=== PATIENT | female | born 1990 | race Caucasian/White ===

== ENCOUNTER 2016-10-10 18:43 | Emergency (ER) | payer OTHER ==
--- NOTE | 2016-10-10 19:34 | EDPHY ---
HPI/HX/ROS/PE/MDM Narrative: CHIEF COMPLAINT: Left-sided head pain. HISTORY OF PRESENT ILLNESS: The patient is a 26-year-old female with a history of trigeminal neuralgia who presents with left-sided head pain for the past 4 hours. The pain began in her left ear and now radiates to the top of her head and down her neck. The pain is usually on the right but she does sometimes get it on the left. She denies provoking factors. No recent sickness, cough, ear pain, recent dental work. She took her Tegretol and Indomethacin to no effect. She takes Tegretol daily but now only takes Indomethacin when she has an attack (1-2 times per month). No fever, chills, chest pain, shortness of breath, palpitations, vomiting, diarrhea, urinary complaints, rash, headache, lightheadedness, vision changes, hearing changes. REVIEW OF SYSTEMS: Aside from elements discussed in the HPI, a comprehensive 10-point review of systems was reviewed and is negative. PAST MEDICAL HISTORY: Mononucleosis, Lyme disease, UTIs, kidney stones, trigeminal neuralgia. SOCIAL HISTORY: From [facility], social alcohol use. VITAL SIGNS: Reviewed by me GENERAL: Well-developed, well-nourished, tearful, reporting pain. HEENT: Atraumatic. Eyes: No icterus, no injection. KAMRAN, EOMI. Left ear: Patient declined examination of the tympanic membrane. She states that any manipulation of the ear causes severe increase in her discomfort. Mouth: moist mucous membranes. Patient does have limitation in opening her mouth. She states this happens when her trigeminal neuralgia is severe. No erythema or lesions. Neck: supple with no adenopathy. LUNGS: Clear to auscultation bilaterally, no wheezes, rhonchi or rales. CARDIAC: Regular rate and rhythm, no rubs, murmurs or gallops. ABDOMEN: Soft, nontender, nondistended, bowel sounds normal. BACK: No CVA tenderness. EXTREMITIES: No trauma. No edema. Range of motion is normal throughout. NEURO: Alert and oriented, cranial nerves 2-12 are intact. Grossly nonfocal. SKIN: Warm and dry, no rash. PSYCHIATRIC: Normal mentation, no agitation. Portions of this note were transcribed by a medical records auditor. I personally performed a history, physical exam, medical decision making, and confirmed accuracy of information the transcribed note. ED Course: The patient's condition today does not differ from her usual episodes of trigeminal neuralgia pain. As such, I will treat her with the pain and nausea medications she usually receives as she tells me these usually work. An IV was established. 1mg IV Dilaudid and 1mg IV Zofran administered. 2049: Reassessed patient. She is feeling better but the pain has not completely gone away. I will give her 30mg Toradol and she is comfortable going home after with neurology follow up. Just prior to discharge patient episode of nausea and vomiting. She had received Zofran initially. She received Reglan 10 mg. She reports much improvement in her nausea. She feels comfortable being discharged home. She was given a prescription for Pomeroy to use if needed for any residual pain. She was also encouraged to follow up with a neurologist here in [place] and she has seen Dr. Nixon previously. MDM: After history was obtained, and the physical exam performed, a differential for the patient's presenting complaint was considered including, but not limited to , trigeminal neuralgia, shingles, migraine, trauma, meningitis, encephalitis, sinusitis, otitis media, otitis externa. - Data Points Medications Given: Discontinued Medications Hydromorphone HCl (Dilaudid) 1 mg IVP EDNOW ONE Stop: 10/10/16 19:41 Last Admin: 10/10/16 20:02 Dose: 1 mg Ketorolac Tromethamine (Toradol) 30 mg IVP EDNOW ONE Stop: 10/10/16 21:04 Last Admin: 10/10/16 21:36 Dose: 30 mg Metoclopramide HCl (Reglan Injection) 10 mg IVP EDNOW ONE Stop: 10/10/16 21:34 Last Admin: 10/10/16 21:37 Dose: 10 mg Ondansetron HCl (Zofran) 4 mg IVP EDNOW ONE Stop: 10/10/16 19:42 Last Admin: 10/10/16 20:02 Dose: 4 mg General Time Seen by Provider: 10/10/16 18:53 Initial Vital Signs: Initial Vital Signs Temperature (C) 36.9 C 10/10/16 18:47 Heart Rate 80 10/10/16 18:47 Respiratory Rate 17 10/10/16 18:47 Blood Pressure 134/95 H 10/10/16 18:47 O2 Sat (%) 97 10/10/16 18:47 O2 Delivery Mode Room Air Allergies/Adverse Reactions: Penicillins Allergy (Intermediate, Verified 04/15/16 18:48) Hives Home Medications: Medication Instructions Recorded Iud 04/15/16 carBAMazepine [Tegretol] 200 mg PO DAILY #30 tablet 04/15/16 Hydrocodone/APAP 5/325 [Pomeroy 1 tab PO Q6H PRN #10 tab 10/10/16 5/325 (RX)] INDOMETHACIN 10/10/16 Lo Loestrin Fe 1-10 Tablet 10/10/16 Departure - Departure Disposition: Home, Routine, Self-Care Clinical Impression: Trigeminal neuralgia of right side of face, Trigeminal neuralgia pain Condition: Good Instructions: Hydrocodone/Acetaminophen (By mouth), Trigeminal Neuralgia (ED) Additional Instructions: Call your neurologist tomorrow morning to set up a follow up appointment. Return to the emergency department if you experience any serious worsening of condition. Okay to take hydrocodone if needed for residual, severe pain. Referrals: Dewey Nixon MD [Medical Doctor] - As per Instructions Prescriptions: Hydrocodone/APAP 5/325 [Pomeroy 5/325 (RX)] 1 tab PO Q6H PRN #10 tab PRN Reason: Pain Report Scribed for: Mirian Perez Report Scribed by: Burton Murphy Date of Report: 10/10/16 Time of Report: 19:36
[2016-10-10] MEDS ORDERED: HYDROmorphONE/DILAUDID 1 MG/ML SYR IVP ONE (19:40)
[2016-10-10] MEDS ORDERED: ONDANSETRON 4 MG/2 ML VIAL IVP ONE (19:41)
[2016-10-10] MEDS ORDERED: KETOROLAC 30 MG/1 ML SDV IVP ONE (21:03)
[2016-10-10] MEDS ORDERED: METOCLOPRAMIDE 10 MG/2 ML VIAL ONE ×2 (21:31)
[2016-10-10] MEDS ORDERED: METOCLOPRAMIDE 10 MG/2 ML VIAL IVP ONE (21:33)
[2016-10-10] MEDS ORDERED: ONDANSETRON 4MG PREPACK#2 BTL TAKEHOME ONE (21:51)
[2016-10-10 22:00] VITALS: BP 124/62; PULSE 74; RESP 16; TEMP 97.9; O2SAT 94
[2016-10-10] MEDS ORDERED: ONDANSETRON DISINTEGRATING 4 MG TAB PO ONE (22:07)
[2016-10-10] MEDS ORDERED: ONDANSETRON DISINTEGRATING 4 MG TAB ONE (22:08)
== END 2016-10-10 23:05 | disposition home or self-care (01) ==
DX: G50.0 Trigeminal neuralgia (principal)
CPT/HCPCS: 96374; J1170; J1885; J2405; J2765

== ENCOUNTER 2017-01-17 19:56 | Emergency (ER) | payer OTHER ==
[2017-01-17 20:14] VITALS: TEMP 97.2
[2017-01-17] MEDS ORDERED: HYDROmorphONE/DILAUDID 1 MG/ML SYR IVP ONE (20:47)
[2017-01-17] MEDS ORDERED: ONDANSETRON 4 MG/2 ML VIAL IVP ONE (20:47)
[2017-01-17] MEDS ORDERED: KETOROLAC 15 MG/1 ML SDV IVP ONE (23:20)
--- NOTE | 2017-01-17 23:38 | EDPHY ---
H & P Stated Complaint: L side trigeminal neuralgia - Personal History LMP (Females 10-55): IUD In Place Current Tetanus/Diphtheria Vaccine: Yes Tetanus Vaccine Date: 2011 - Medical/Surgical History Hx Asthma: No Hx Chronic Respiratory Disease: No Hx Diabetes: No Hx Cardiac Disease: No Hx Renal Disease: No Hx Cirrhosis: No Hx Alcoholism: No Hx HIV/AIDS: No Hx Splenectomy or Spleen Trauma: No Other PMH: PMHx: [place], Lyme Dx, UTI's, Abscess, Kidney stone, Trigeminal neuralgia. PSHx: denies - Social History Smoking Status: Never smoked Time Seen by Provider: 01/17/17 20:42 HPI/ROS: Chief complaint: Left-sided trigeminal neuralgia pain History of present illness: This is a 26-year-old female who presents to the emergency department for left-sided trigeminal neuralgia pain. Patient has a history of trigeminal neuralgia. It is often on the right but occasionally on the left. She reports a flare of the pain over the last day. She states she is unable to control it at home using her home medications. She states this is a rather typical exacerbation. There is nothing new or different today is compared to previous episodes. No other complaints. (Demetrius Lara) - Physical Exam Exam: General Appearance: Alert, uncomfortable appearing. Eyes: Pupils equal and round no injection. Respiratory: Chest is nontender, lungs are clear to auscultation. Cardiac: regular rate and rhythm. Musculoskeletal: Neck is supple and nontender. Extremities have full range of motion and are nontender. Skin: No rashes or lesions. Neurological: Alert and oriented x4. Cranial nerves 2-12 grossly intact. Strength and sensation intact and symmetrical. Patient ambulating without difficulty. (Demetrius Lara) Constitutional: Initial Vital Signs Temperature (C) 36.2 C 01/17/17 20:12 Heart Rate 87 01/17/17 20:12 Respiratory Rate 16 01/17/17 20:12 Blood Pressure 99/87 H 01/17/17 20:12 O2 Sat (%) 94 01/17/17 20:12 O2 Delivery Mode Room Air Allergies/Adverse Reactions: Penicillins Allergy (Intermediate, Verified 04/15/16 18:48) Hives Home Medications: Medication Instructions Recorded Iud 04/15/16 carBAMazepine [Tegretol] 200 mg PO DAILY #30 tablet 04/15/16 ASPIRIN 01/17/17 Medical Decision Making ED Course/Re-evaluation: Patient seen under the supervision of my secondary supervising physician Dr. Deo Green. Patient presents to the emergency department reporting a flare of her trigeminal neuralgia pain. The pain is on the left. She has had multiple similar flares in the past. There is nothing new or different today as compared to previous episodes. She is nontoxic. Vital signs are stable. Physical exam is benign including a nonfocal neurologic exam. I do not believe emergency department workup or inpatient management is warranted. She is symptomatically treated with Dilaudid, Toradol and Zofran and reports improvement in pain. She would like to be discharged home. Home care is discussed. She is to follow up with her own doctors for recheck. Return precautions are given. Patient voiced understanding and agreement with plan. ( Demetrius Lara) - Data Points Medications Given: Discontinued Medications Hydromorphone HCl (Dilaudid) 1 mg IVP EDNOW ONE Stop: 01/17/17 20:48 Last Admin: 01/17/17 21:05 Dose: 1 mg Ketorolac Tromethamine (Toradol) 15 mg IVP EDNOW ONE Stop: 01/17/17 23:21 Last Admin: 01/17/17 23:44 Dose: 15 mg Ondansetron HCl (Zofran) 4 mg IVP EDNOW ONE Stop: 01/17/17 20:48 Last Admin: 01/17/17 21:05 Dose: 4 mg Departure - Departure Disposition: Home, Routine, Self-Care Clinical Impression: Trigeminal neuralgia of left side of face Condition: Good Instructions: Trigeminal Neuralgia (ED) Additional Instructions: Follow-up with your neurologist for further care If symptoms worsen or new symptoms develop return to the emergency room for recheck Referrals: NONE *PRIMARY CARE P,. [Primary Care Provider] - As per Instructions Dewey Nixon MD [Medical Doctor] - As per Instructions
[2017-01-17 23:59] VITALS: BP 106/61; PULSE 66; RESP 16; O2SAT 93
== END 2017-01-17 23:56 | disposition home or self-care (01) ==
DX: G50.0 Trigeminal neuralgia (principal)
CPT/HCPCS: 96374; J1170; J1885; J2405